=== PATIENT | female | born 1990 | race Caucasian/White ===

== ENCOUNTER 2017-02-11 19:53 | Emergency (ER) | payer SELFPAY ==
[2017-02-11 20:53] VITALS: RESP 16
--- NOTE | 2017-02-11 21:53 | ED PDOC ---
HPI: Headache Time Seen by Provider: 02/11/17 20:24 Chief Complaint (Nursing): Headache History Per: Patient History/Exam Limitations: no limitations Onset/Duration Of Symptoms: Hrs Additional History Per: Patient Additional Complaint(s): 3-4 month , states she has has SHERMAN, neck pain x 1 day. nonthunderclap, no photophobia, not worst SHERMAN of life. States she has had on and off R sided abd pain with . denies vag bleed or vag discharge. no urinary symptoms. no fevers. pt. eating a full meal in bed and requesting an "xray" Past Medical History Reviewed: Historical Data, Nursing Documentation, Vital Signs Vital Signs: Last Vital Signs Temp 98.8 F 02/11/17 20:55 Pulse 77 02/11/17 20:52 Resp 16 02/11/17 20:52 BP 101/70 02/11/17 20:52 Pulse Ox 100 02/11/17 20:52 - Medical History PMH: Migraine - Surgical History Surgical History: Appendectomy, - Family History Family History: States: Unknown Family Hx - Immunization History Hx Tetanus Toxoid Vaccination: No Hx Influenza Vaccination: No Hx Pneumococcal Vaccination: No - Home Medications Home Medications: Ambulatory Orders Medication Instructions Recorded Acetaminophen [Tylenol Extra 500 mg PO Q4H PRN #10 tab 01/08/15 Strength] Acetaminophen [Tylenol] 650 mg PO Q4 #30 tab 01/30/16 Ibuprofen [Motrin] 600 mg PO Q6 #30 tab 01/30/16 Ondansetron [Zofran] 4 mg PO Q8H #12 tab 01/30/16 Acetaminophen [Arthritis Pain] 650 mg PO Q4 #30 tablet.er 02/11/17 - Allergies Allergies/Adverse Reactions: Allergies Allergy/AdvReac Type Severity Reaction Status Date / Time No Known Allergies Allergy Verified 12/12/16 11:03 Review of Systems ROS Statement: Except As Marked, All Systems Reviewed And Found Negative Physical Exam - Reviewed Nursing Documentation Reviewed: Yes Vital Signs Reviewed: Yes - Physical Exam Appears: Positive for: Well, Non-toxic, No Acute Distress Head Exam: Positive for: ATRAUMATIC, NORMAL INSPECTION, NORMOCEPHALIC Skin: Positive for: Normal Color, Warm, DRY Eye Exam: Positive for: EOMI, Normal appearance, PERRL ENT: Positive for: Normal ENT Inspection Neck: Positive for: Normal, Painless ROM Cardiovascular/Chest: Positive for: Regular Rate, Rhythm Respiratory: Positive for: CNT, Normal Breath Sounds Gastrointestinal/Abdominal: Positive for: Normal Exam, Bowel Sounds, Soft Back: Positive for: Normal Inspection Extremity: Positive for: Normal ROM Neurologic/Psych: Positive for: Alert, Oriented - ECG O2 Sat by Pulse Oximetry: 100 Pulse Ox Interpretation: Normal Medical Decision Making Medical Decision Making: abd pain in , nausea. will r/o ectopic. SHERMAN nonpathological. 2350: US negative and patient feeling better. Instructed to avoid NSAIDs during and f/u w/ PCP. Disposition - Clinical Impression Clinical Impression: Headache, Abdominal pain affecting - Patient ED Disposition Is Patient to be Admitted: No Counseled Patient/Family Regarding: Studies Performed, Diagnosis, Need For Followup - Disposition [facility] Disposition: Routine/Home Disposition Time: 23:50 Condition: STABLE Additional Instructions: Please avoid advil or any NSAIDs during . Please be aware that x-rays are potentially harmful for your baby. Prescriptions: Acetaminophen [Arthritis Pain] 650 mg PO Q4 #30 tablet.er Instructions: Abdominal Pain in (ED), General Headache (ED)
[2017-02-12 00:03] VITALS: BP 111/69; PULSE 75; TEMP 98.4; O2SAT 99
--- NOTE | 2017-02-12 12:10 | US ---
PROCEDURE: Obstetrical ultrasound examination HISTORY: 3-4 mo , R sided abd pain COMPARISON: 01/01/2017 TECHNIQUE: Transabdominal FINDINGS: Single live intrauterine gestation noted. 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 2nd cornu is not evident on this examination. heart rate 163 beats per minute. Breech presentation. Amniotic fluid volume grossly normal. biometry yields average ultrasound age of 14 weeks 0 days. The FISH by ultrasound examination is 08/12/2017. Placenta could not be adequately delineated on the basis of this examination. Relationship to internal cervical os not demonstrated. Cervix closed and measures 4.2 cm in length. No uterine mass identified. Ovaries not visualized. No adnexal masses seen. No fluid seen in cul-de-sac. IMPRESSION: Single live intrauterine gestation of approximately 14 weeks 0 days gestational age by ultrasound examination. heart rate 163 beats per minute. Placenta not well delineated on the basis of this examination. Placenta previa not excluded on the basis of this examination. However, followup examination is advised during 2nd trimester of . Cervix closed. Breech presentation. Preliminary interpretation of this examination was reported by [facility] at 12:20 a.m. on 02/12/2017. There is concurrence of this report with the preliminary interpretation.
== END 2017-02-11 23:54 | disposition home or self-care (01) ==
LOC: H.ER 19:53
DX: O26.892 Other specified pregnancy related conditions, second trimester (principal); M54.2 Cervicalgia

== ENCOUNTER 2017-06-09 18:07 | Emergency (ER) | payer MEDICAID ==
--- NOTE | 2017-06-09 19:32 | OBHP ---
Datetime: 06/09/2017 19:15 IP Adm Impression: , intrauterine IP Chief Complaint Other: dizziness IP Admit Plan: Discharge home Admit Comment, IP Provider: The patient was seen with the resident and I agree with the notes. Patient was instructed to follo w up with her PMD. labor precautions provided Pelvic Type - PN: Not Done Extremities - PN: Normal Abdomen - PN: Normal Back - PN: Normal Lungs - PN: Normal Heart - PN: Normal Thyroid - PN: Normal Neurologic - PN: Normal HEENT - PN: Normal General - PN: Normal FHR - Baseline A Provider: 140 Gestation - Est Wks by US: 28.0 EGA AdmitDate IP: 29.4 Vital Signs Provider: Reviewed IP Chief Complaint: Other NICHD Variability Prov Fetus A: Moderate 6-25bpm NICHD Accel Fetus A IP Provider: 10X10 FHR Category Provider Fetus A: Category I Genitourinary Exam: Normal
== END 2017-06-09 20:45 | disposition home or self-care (01) ==
LOC: H.EROB2 18:07
DX: O26.93 Pregnancy related conditions, unspecified, third trimester (principal); R42 Dizziness and giddiness; Z3A.29 29 weeks gestation of pregnancy

== ENCOUNTER 2017-08-16 05:43 | Emergency (ER) | payer MEDICAID ==
[2017-08-16 07:10] VITALS: BMI 24.9
[2017-08-16] MEDS ORDERED: Lactated Ringer's 1,000 ML IV SCH (09:15)
--- NOTE | 2017-08-16 11:36 | OBHP ---
Datetime: 08/16/2017 07:31 IP Adm Impression: Term, intrauterine IP Admit Plan: Observation/Evaluation Admit Comment, IP Provider: 27 yo female at 39 weeks 2 days gestation confirmed by U/S at 18 we eks presents complaining of contractions occuring every 15-20minutes and vaginal bleeding since 3am. Last sexual acivity was 1 week ago. Denies trauma, vaginal fluid, headache, dizziness. Reports last f etal movement at 2am. Patient states that she was told she was breech a week prior and had concerns. PNC at [facility] in [place]. GBS negative. RH negative, Recieved Rhogam at 28wee ks (05/19). Latest U/S on 33weeks (07/06) showed an anterior placenta with no previa seen, Bicornuate Uterus. complicated by anemia, found to be + Beta Thalassemia Trait. Remainder of Prental labs unremarkable OBHx: 2 prior (2010, 2013) full term, patient states she had excessive bleeding during second , not requiring a blood transfusion, reported that labor progressed rapidly within 4-5 hour s. Hotel Clerk: Pap Smear negative in 04/01/17, No Hx STD's or fibroids PMHx: No chronic diseases Surgical hx: Appendectomy in 2012 Social Hx: lives with , 2 children. Denies smoking, alcohol, drug use Rx meds: PNV and Iron Allergies: NKDA Triage Vitals: BP 126/93, afebrile Assessment: IUP at 39 weeks gestation 2 days complaining of contractions and vaginal bleed, not in active labo r. BP is stable in 120's systolic. One episode of BP 132/84 while patient was complaining of pain. F HT reassuring. No acute bleeding visualized on pelvic exam. Plan: Monitor BP's q4 and continue to observe for progression of labor. Monitor for signs of activ e bleeding. Fluids administered. Audie Mcmanus PGY1 OB addendum: Patient seen and examined by me and we agree with the assessment following modification- Impression: No evidence of active labor No active bleeding. Cervical bleeding likely to cervical dilation to 1 cm. Reactive NST Plan: Labor precautions Patient advised to return to the hospital bleeding worse. Labor precautions Follow-up with OB appointment as scheduled Pelvic Type - PN: Not Done Extremities - PN: Normal Abdomen - PN: Normal Back - PN: Normal Breast - PN: Normal Lungs - PN: Normal Heart - PN: Normal Thyroid - PN: Normal Neurologic - PN: Normal HEENT - PN: Normal General - PN: Normal Presentation-Admit: Vertex FHR - Baseline A Provider: 140 Comments, ACOG Physical Exam: Speculum Exam: +dark blood in posteriro cul de sac, clotted CVX: +dark blood thickened blood per cervical os; no active gushing/bleeding. repeat exam digital: no change 1cm/0%/-4 EGA AdmitDate IP: 39.2 Vital Signs Provider: Reviewed IP Chief Complaint: Uterine contractions; Vaginal bleeding NICHD Variability Prov Fetus A: Moderate 6-25bpm NICHD Accel Fetus A IP Provider: 15X15 FHR Category Provider Fetus A: Category I NICHD Decel Fetus A IP Provider: None Dilatation, Provider: 1cm Effacement, Provider: 0 Station, Provider: -3 Genitourinary Exam: Normal DTRs - PN: Normal Datetime: 06/09/2017 19:15 IP Hx Assessment: The History has been Updated
[2017-08-16 15:36] VITALS: BP 108/75; PULSE 84; RESP 17; TEMP 98.5
== END 2017-08-16 11:18 | disposition home or self-care (01) ==
LOC: H.EROB2 05:43
DX: O47.1 False labor at or after 37 completed weeks of gestation (principal); Z3A.39 39 weeks gestation of pregnancy; O09.93 Supervision of high risk pregnancy, unspecified, third trimester
CPT/HCPCS: 99283; J7120

== ENCOUNTER 2017-08-17 04:03 | Inpatient (IN) | payer MEDICAID ==
[2017-08-17 04:21] VITALS: BMI 24.3
[2017-08-17] MEDS: Lactated Ringer's 500 ML IV SCH ×6 (05:25→09:00)
[2017-08-17 05:31] VITALS: O2SAT 100
[2017-08-17 05:39] LABS: BASO # 0.1 K/uL (0.0-0.2); BASO % 0.4 % (0.0-2.0); EOS # 0.1 K/uL (0.0-0.7); HEMATOCRIT 35.2 % (34.0-47.0); LYMPH # 2.3 K/uL (1.0-4.3); LYMPH % 16.5 % (20.0-40.0); MEAN CELL VOLUME 72.7 fl (81.0-99.0); MEAN CORPUSCULAR HGB CONC 31.6 g/dL (33.0-37.0); MEAN PLATELET VOLUME 8.8 fl (7.2-11.7); MONO # 0.7 K/uL (0.0-0.8); MONO % 5.3 % (0.0-10.0); NEUT # 10.6 K/uL (1.8-7.0); NEUT % 76.8 % (50.0-75.0); NRBC % 0.1 % (0.0-0.0); RED CELL DISTRIBUTION WIDTH 15.6 % (11.5-14.5); WHITE BLOOD COUNT 13.8 K/uL (4.8-10.8)
[2017-08-17] MEDS ORDERED: Lidocaine 1% Inj (20ml) ONE (06:28)
[2017-08-17] MEDS ORDERED: Fentanyl/Bupivacaine HCl 250 ML EPI ONE (06:41)
[2017-08-17] MEDS ORDERED: Oxytocin 30 units/LR 500ML 30 U/500 ML BAG IV ONE (07:01)
[2017-08-17] MEDS ORDERED: Oxycodone/Acetaminophen 5/325 mg Tab PO PRN (13:29)
[2017-08-17] MEDS: Benzocaine/Menthol SPRAY TOP PRN (17:22)
[2017-08-18 07:22] LABS: HEMATOCRIT 26.3 % (34.0-47.0); MEAN CELL VOLUME 73.1 fl (81.0-99.0); MEAN CORPUSCULAR HGB CONC 31.4 g/dL (33.0-37.0); RED CELL DISTRIBUTION WIDTH 15.4 % (11.5-14.5); WHITE BLOOD COUNT 15.4 K/uL (4.8-10.8)
[2017-08-19] MEDS: Benzocaine/Menthol SPRAY TOP PRN (12:35)
[2017-08-20 16:21] VITALS: BP 103/58; PULSE 88; RESP 18; TEMP 98.3
== END 2017-08-19 13:55 | disposition home or self-care (01) | DRG 373 ==
LOC: H.EROB2 04:03 → H.L&D 05:09 → H.OB/GYN 15:23
PROVIDERS: ADMIT Obstetrics & Gynecology; ATTEND Obstetrics & Gynecology
PROC: 10E0XZZ Delivery of Products of Conception, External Approach (ICD-10-PCS; principal; 2017-08-17)
PROC: 0HQ9XZZ Repair Perineum Skin, External Approach (ICD-10-PCS; 2017-08-17)
PROC: 4A1HXCZ Monitoring of Products of Conception, Cardiac Rate, External Approach (ICD-10-PCS; 2017-08-17)
DX: O76 Abnormality in fetal heart rate and rhythm complicating labor and delivery (principal); O69.81X0 Labor and delivery complicated by cord around neck, without compression, not applicable or unspecified; Z37.0 Single live birth; Z3A.39 39 weeks gestation of pregnancy; O70.0 First degree perineal laceration during delivery

== ENCOUNTER 2017-10-08 21:02 | Emergency (ER) | payer MEDICAID ==
[2017-10-08 21:02] VITALS: BMI 24.3
[2017-10-08 21:20] VITALS: BP 109/78; PULSE 80; RESP 18; TEMP 97.4; O2SAT 100
--- NOTE | 2017-10-08 21:27 | ED PDOC ---
HPI: General Adult Time Seen by Provider: 10/08/17 21:19 Chief Complaint (Nursing): Breast Problem Chief Complaint (Provider): Breast problem History Per: Patient History/Exam Limitations: no limitations Onset/Duration Of Symptoms: Days (x2) Current Symptoms Are (Timing): Still Present Additional Complaint(s): Jorge Venegas is a 27 year old female, with a past medical history of migraines , who presents to the emergency department complaining of bilateral breast pain onset for 2 days. Patient reports her 6 weeks old baby. Patient states that this is her 3rd baby. She denies any fever or chills. No further medical complaints. PMD: None provided. Past Medical History Reviewed: Historical Data, Nursing Documentation, Vital Signs Vital Signs: Last Vital Signs Temp 97.4 F L 10/08/17 21:17 Pulse 80 10/08/17 21:17 Resp 18 10/08/17 21:17 BP 109/78 10/08/17 21:17 Pulse Ox 100 10/08/17 21:33 - Medical History PMH: Migraine - Surgical History Surgical History: Appendectomy, - Family History Family History: States: Unknown Family Hx - Immunization History Hx Tetanus Toxoid Vaccination: No Hx Influenza Vaccination: No Hx Pneumococcal Vaccination: No - Home Medications Home Medications: Ambulatory Orders Medication Instructions Recorded Ferrous Sulfate [Feosol] 325 mg PO DAILY 08/17/17 Multivit/Folic Acid/I 1 tab PO DAILY 08/17/17 [ Plus] Ibuprofen [Motrin] 600 mg PO Q6 #20 tab 10/08/17 - Allergies Allergies/Adverse Reactions: Allergies Allergy/AdvReac Type Severity Reaction Status Date / Time No Known Allergies Allergy Verified 08/17/17 05:22 Review of Systems ROS Statement: Except As Marked, All Systems Reviewed And Found Negative Constitutional: Negative for: Fever, Chills Musculoskeletal: Positive for: Other (bilateral breast pain) Physical Exam - Reviewed Nursing Documentation Reviewed: Yes Vital Signs Reviewed: Yes - Physical Exam Appears: Positive for: Well, Non-toxic, No Acute Distress Head Exam: Positive for: ATRAUMATIC, NORMAL INSPECTION, NORMOCEPHALIC Skin: Positive for: Normal Color, Warm, Dry Eye Exam: Positive for: EOMI, Normal appearance, PERRL Neck: Positive for: Normal, Painless ROM, Supple Respiratory: Negative for: Respiratory Distress Extremity: Positive for: Normal ROM Neurologic/Psych: Positive for: Alert, Oriented Comments: Lactating bilaterally. No erythema, no edema to the nipple. Positive cracked/ dry skin - ECG O2 Sat by Pulse Oximetry: 100 (RA) Pulse Ox Interpretation: Normal Medical Decision Making Medical Decision Making: Initial Impression: Breast soreness from breast feeding Initial Plan: Supportive care measures discussed, as well as pumping options. Pt givne information for consult to follow up with ~ Scribe Attestation: Documented by Sukh Lewis, acting as a scribe for Ce Thomason PA-C. Provider Scribe Attestation: All medical record entries made by the Scribe were at my direction and personally dictated by me. I have reviewed the chart and agree that the record accurately reflects my personal performance of the history, physical exam, medical decision making, and the department course for this patient. I have also personally directed, reviewed, and agree with the discharge instructions and disposition. Disposition - Clinical Impression Clinical Impression: Pain aggravated by breast feeding - Patient ED Disposition Is Patient to be Admitted: No - Disposition Disposition: Routine/Home Disposition Time: 21:35 Condition: STABLE Additional Instructions: environmental consultant: [phone] Prescriptions: Ibuprofen [Motrin] 600 mg PO Q6 #20 tab Instructions: and Nipple Soreness (ED) Forms: [employer] (Portuguese)
== END 2017-10-08 21:44 | disposition home or self-care (01) ==
LOC: H.ER 21:02
DX: N64.4 Mastodynia (principal)

== ENCOUNTER 2018-02-14 21:21 | Emergency (ER) | payer SELFPAY ==
[2018-02-14 21:21] VITALS: BMI 24.3
[2018-02-14 21:43] VITALS: BP 109/76; PULSE 82; RESP 18; TEMP 98.3; O2SAT 98
--- NOTE | 2018-02-14 22:30 | ED PDOC ---
HPI: Abdomen Time Seen by Provider: 02/14/18 21:56 Chief Complaint (Nursing): Abdominal Pain Chief Complaint (Provider): abdominal pain History Per: Patient History/Exam Limitations: no limitations Onset/Duration Of Symptoms: Days (1) Current Symptoms Are (Timing): Still Present Location Of Pain/Discomfort: RLQ, LLQ, Suprapubic Last Bowel Movement: Today Additional Complaint(s): 28 y/o female presents with lower abdominal pain, worse left side, x 1 day. Patient states when pain gets intense it hurts her rectum when she sits. Denies fever, nausea/vomiting, chest pain, shortness of breath, changes in bowel movements, urinary symptoms, vaginal bleeding/discharge. No medication taken for relief thus far. Abnormal Vaginal Bleeding: No Past Medical History Reviewed: Historical Data, Nursing Documentation, Vital Signs Vital Signs: Last Vital Signs Temp 98.3 F 02/14/18 21:39 Pulse 82 02/14/18 21:39 Resp 18 02/14/18 21:39 BP 109/76 02/14/18 21:39 Pulse Ox 98 02/14/18 23:55 - Medical History PMH: Migraine Denies: Depression, Diabetes, HTN - Surgical History Surgical History: Appendectomy, - Family History Family History: States: Unknown Family Hx - Living Arrangements Living Arrangements: With Family - Immunization History Hx Tetanus Toxoid Vaccination: No Hx Influenza Vaccination: No Hx Pneumococcal Vaccination: No - Home Medications Home Medications: Ambulatory Orders Medication Instructions Recorded Ferrous Sulfate [Feosol] 325 mg PO DAILY 08/17/17 Multivit/Folic Acid/I 1 tab PO DAILY 08/17/17 [ Plus] Ibuprofen [Motrin] 600 mg PO Q6 #20 tab 10/08/17 Polyethylene Glycol 3350 [Miralax] 17 gm PO DAILY PRN #5 powd.pack 02/15/18 - Allergies Allergies/Adverse Reactions: Allergies Allergy/AdvReac Type Severity Reaction Status Date / Time No Known Allergies Allergy Verified 08/17/17 05:22 Review of Systems ROS Statement: Except As Marked, All Systems Reviewed And Found Negative Gastrointestinal: Positive for: Abdominal Pain Genitourinary Female: Positive for: Pelvic Pain Physical Exam - Reviewed Nursing Documentation Reviewed: Yes Vital Signs Reviewed: Yes - Physical Exam Appears: Positive for: Well, Non-toxic, No Acute Distress Head Exam: Positive for: ATRAUMATIC, NORMAL INSPECTION, NORMOCEPHALIC Skin: Positive for: Normal Color Eye Exam: Positive for: Normal appearance ENT: Positive for: Normal ENT Inspection Cardiovascular/Chest: Positive for: Regular Rate, Rhythm Respiratory: Positive for: Normal Breath Sounds Gastrointestinal/Abdominal: Positive for: Bowel Sounds, Soft, Tenderness (rlq, suprapubic, llq) Back: Positive for: Normal Inspection Rectal: Positive for: Deferred Extremity: Positive for: Normal ROM Neurologic/Psych: Positive for: Alert, Oriented - Laboratory Results Result Diagrams: 02/14/18 22:50 02/15/18 00:54 - ECG O2 Sat by Pulse Oximetry: 98 - Progress ED Course And Treament: labs, urine, u/s EXAM: US Pelvis Complete, Transabdominal CLINICAL HISTORY: 28 years old, female; Pain; Abdominal pain and pelvic pain; Lower abdomen TECHNIQUE: Real-time transabdominal pelvic ultrasound (complete) with image documentation. COMPARISON: No relevant prior studies available. FINDINGS: Uterus/cervix: Bicornate uterus Normal endometrial stripe thickness 12.7 mm, and 10 mm. There is an IUD in place in good position. In the RIGHT side endometrial cavity. No myometrial mass. 9.5 cm x 7.7 cm x 3.8 cm Right ovary: Unremarkable. No mass. Normal blood flow. 3.3 cm x 1.9 cm x 2 cm Left ovary: Unremarkable. No mass. Normal blood flow. 2.9 cm x 2.3 cm x 1.9 cm Free fluid: No free fluid. IMPRESSION: 1. Bicornate uterus. 2. IUD in place on the RIGHT side. 3. Negative examination of the ovaries EXAM: CT Abdomen and Pelvis With Intravenous Contrast CLINICAL HISTORY: 28 years old, female; Pain; Abdominal pain; Other: Abd pain TECHNIQUE: Axial computed tomography images of the abdomen and pelvis with intravenous contrast. All CT scans at this facility use one or more dose reduction techniques, viz.: automated exposure control; ma/kV adjustment per patient size (including targeted exams where dose is matched to indication; i.e. head); or iterative reconstruction technique. Coronal and sagittal reformatted images were created and reviewed. CONTRAST: 95 mL of omnipaque 300 administered intravenously. COMPARISON: US - PELVIS ULTRASOUND 2018-02-14 22:35 FINDINGS: Lung bases: Unremarkable. No mass. No consolidation. ABDOMEN: Liver: Hepatomegaly and diffuse fatty infiltrationNo mass. Gallbladder and bile ducts: Unremarkable. No calcified stones. No ductal dilation. Pancreas: Unremarkable. No mass. No ductal dilation. Spleen: Unremarkable. No splenomegaly. Adrenals: Unremarkable. No mass. Kidneys and ureters: Unremarkable. No solid mass. No hydronephrosis. Stomach and bowel: Moderate stool in the colon No obstruction. No mucosal thickening. Appendix: Question prior appendectomy PELVIS: Bladder: Unremarkable. No mass. Reproductive: Intrauterine device redemonstrated within the right endometrial cavity in this patient with bicornuate uterus ABDOMEN and PELVIS: Intraperitoneal space: Unremarkable. No free air. No significant fluid collection. Bones/joints: No acute fracture. No dislocation. Soft tissues: Unremarkable. Vasculature: Unremarkable. No abdominal aortic aneurysm. Lymph nodes: Unremarkable. No enlarged lymph nodes. IMPRESSION: Moderate stool in the colon. Correlate for constipation Intrauterine device within the right endometrial canal in this patient with bicornuate uterus Patient educated on findings, discharged with rx Miralax. Advised follow up PMD 2-3 days. Return precautions given. Disposition - Clinical Impression Clinical Impression: Abdominal pain, Constipation - Patient ED Disposition Is Patient to be Admitted: No Counseled Patient/Family Regarding: Studies Performed, Diagnosis, Need For Followup, Rx Given - Disposition Referrals: [facility] [Outside] Disposition: Routine/Home Disposition Time: 04:01 Condition: IMPROVED Prescriptions: Polyethylene Glycol 3350 [Miralax] 17 gm PO DAILY PRN #5 powd.pack PRN Reason: Constipation Instructions: Constipation in Adults, Acute Abdomen (Belly Pain)
[2018-02-14 22:59] LABS: BASO % 0.6 % (0.0-2.0); EOS # 0.4 K/uL (0.0-0.7); EOS % 5.4 % (0.0-4.0); HEMOGLOBIN 11.6 g/dL (12.0-16.0); LYMPH # 1.9 K/uL (1.0-4.3); LYMPH % 25.9 % (20.0-40.0); MEAN CELL VOLUME 67.9 fl (81.0-99.0); MEAN CORPUSCULAR HEMOGLOBIN 21.4 pg (27.0-31.0); MEAN CORPUSCULAR HGB CONC 31.5 g/dL (33.0-37.0); MEAN PLATELET VOLUME 9.3 fl (7.2-11.7); MONO # 0.6 K/uL (0.0-0.8); MONO % 7.4 % (0.0-10.0); NEUT # 4.5 K/uL (1.8-7.0); NEUT % 60.7 % (50.0-75.0); RBC 5.41 Mil/uL (3.80-5.20); RED CELL DISTRIBUTION WIDTH 15.8 % (11.5-14.5); WHITE BLOOD COUNT 7.5 K/uL (4.8-10.8)
[2018-02-14] MEDS ORDERED: Iohexol 240 (50 ml) PO ONE (23:55)
[2018-02-15] MEDS ORDERED: Morphine 4 MG/ML VIAL IV ONE (00:45)
[2018-02-15 01:09] LABS: ALB/GLOB RATIO 1.1 (1.0-2.1); ALBUMIN 4.4 g/dL (3.5-5.0); ALT/SGPT 49 U/L (9-52); AST/SGOT 25 U/L (14-36); BLOOD UREA NITROGEN 9 mg/dl (7-17); CALCIUM 9.5 mg/dL (8.4-10.2); GFR AFRICAN-AMERICAN > 60; GFR NON-AFRICAN AMERICAN > 60; LIPASE 105 U/L (23-300)
[2018-02-15] MEDS ORDERED: Iohexol 300 100 ML IJ ONE (02:33)
--- NOTE | 2018-02-15 10:07 | CT ---
PROCEDURE: CT Abdomen and Pelvis with contrast HISTORY: Abdominal pain COMPARISON: None. TECHNIQUE: CT scan of the abdomen and pelvis was performed after administration of intravenous contrast. Oral contrast was administered. Coronal and sagittal reformatted images were obtained. Radiation dose: Total exam DLP = 371.38 mGy-cm. This CT exam was performed using one or more of the following dose reduction techniques: Automated exposure control, adjustment of the mA and/or kV according to patient size, and/or use of iterative reconstruction technique. FINDINGS: LOWER THORAX: The lung bases are clear. LIVER: Normal in size and there is diffuse fatty infiltration. No gross lesion or ductal dilatation. GALLBLADDER AND BILE DUCTS: No calcified gallstones. PANCREAS: Normal in size and appearance. No gross lesion or ductal dilatation. SPLEEN: Normal in size and appearance. ADRENALS: No discrete nodule. KIDNEYS AND URETERS: Normal in size with homogeneous enhancement. No hydronephrosis. No solid mass. VASCULATURE: No aortic aneurysm. BOWEL: The small bowel loops are normal in caliber. There is large amount of stool in the colon. No bowel dilatation or obstruction APPENDIX: Normal appendix. PERITONEUM: No free fluid. No free air. LYMPH NODES: No enlarged lymph nodes. BLADDER: Partially decompressed. REPRODUCTIVE: There is a bicornuate uterus with IUD in customary position in the right endometrial cavity. BONES: No acute fracture. Within normal limits for the patient's age. OTHER FINDINGS: None. IMPRESSION: No acute abdominal or pelvic abnormality. Constipation. No evidence of bowel obstruction. Bicornuate uterus with IUD in customary position in the right endometrial cavity. A preliminary report was provided by [facility].
--- NOTE | 2018-02-15 10:56 | US ---
HISTORY: Pelvic pain. LMP 01/25/2018 COMPARISON: None available. TECHNIQUE: FINDINGS: UTERUS: Measures 3.9 x 7.8 x 9.6 cm. Bicornuate uterus. No fibroid or other mass lesion seen. ENDOMETRIUM: Measures 12.7 mm in diameter. IUD identified within the right endometrial echo complex CERVIX: No cervical abnormality identified. RIGHT OVARY: Measures 1.9 x 2 x 3.3 cm. No solid mass. Normal flow. LEFT OVARY: Measures 2 x 2.3 x 2.9 cm. Normal flow. FREE FLUID: No significant free fluid noted. OTHER FINDINGS: None. IMPRESSION: Bicornuate uterus. Intrauterine contraceptive device (IUD) identified in the right side. Concordant results (preliminary interpretation) provided by [facility]. Procedure Completed: 22:57 Preliminary ([facility]) Report: Dictated and Authenticated: 23:33 Final Interpretation: 10:54
== END 2018-02-15 04:22 | disposition home or self-care (01) ==
LOC: H.ER 21:21
DX: R10.2 Pelvic and perineal pain (principal); K59.00 Constipation, unspecified; Z97.5 Presence of (intrauterine) contraceptive device
CPT/HCPCS: 74177; 76856; 80053; 81025; 83690; 85025; 99283; J1885; J2270; Q9966; Q9967

== ENCOUNTER 2018-05-06 15:46 | Emergency (ER) | payer OTHER ==
[2018-05-06 15:47] VITALS: BMI 24.3
[2018-05-06 15:53] VITALS: BP 122/84; RESP 19; TEMP 98.5; O2SAT 98
--- NOTE | 2018-05-06 16:44 | ED PDOC ---
Upper Extremity Pain/Injury Time Seen by Provider: 05/06/18 16:32 Chief Complaint (Nursing): Finger,Hand,&Wrist Chief Complaint (Provider): Finger Injury History Per: Patient History/Exam Limitations: no limitations Onset/Duration Of Symptoms: Days (yesterday morning) Current Symptoms Are (Timing): Still Present Additional Complaint(s): 28 year old, right-hand dominant female presents to ED with complaints of a right second digit finger laceration sustained yesterday morning. Patient states she was preparing food for her child at the time and accidentally cut finger on blender/braze applicator blade. Patient is up to date with tetanus. No medical attention sought yesterday at time of injury. PCP: No PCP Past Medical History Reviewed: Historical Data, Nursing Documentation, Vital Signs Vital Signs: Last Vital Signs Temp 98.5 F 05/06/18 15:52 Pulse 101 H 05/06/18 15:52 Resp 19 05/06/18 15:52 BP 122/84 05/06/18 15:52 Pulse Ox 98 05/06/18 15:52 - Medical History PMH: No Chronic Diseases - Surgical History Surgical History: Appendectomy, - Family History Family History: States: No Known Family Hx - Living Arrangements Living Arrangements: With Family - Social History Current smoker - smoking cessation education provided: No Ex-Smoker (has not smoked in the last 12 months): No Alcohol: None Drugs: Denies - Immunization History Hx Tetanus Toxoid Vaccination: Yes - Home Medications Home Medications: Ambulatory Orders Medication Instructions Recorded Ferrous Sulfate [Feosol] 325 mg PO DAILY 08/17/17 Multivit/Folic Acid/I 1 tab PO DAILY 08/17/17 [ Plus] Ibuprofen [Motrin] 600 mg PO Q6 #20 tab 10/08/17 Polyethylene Glycol 3350 [Miralax] 17 gm PO DAILY PRN #5 powd.pack 02/15/18 Cephalexin [Keflex] 500 mg PO TID #21 capsule 05/06/18 Ibuprofen [Motrin] 600 mg PO Q6 PRN #15 tab 05/06/18 - Allergies Allergies/Adverse Reactions: Allergies Allergy/AdvReac Type Severity Reaction Status Date / Time No Known Allergies Allergy Verified 08/17/17 05:22 Review of Systems ROS Statement: Except As Marked, All Systems Reviewed And Found Negative Musculoskeletal: Positive for: Other (right index finger laceration sustained yesterday) Physical Exam - Reviewed Nursing Documentation Reviewed: Yes Vital Signs Reviewed: Yes - Physical Exam Appears: Positive for: Well, Non-toxic, No Acute Distress Skin: Positive for: Normal Color. Negative for: Rash Eye Exam: Positive for: Normal appearance Extremity: Positive for: Normal ROM, Other (1 cm laceration to dorsal aspect of right index finger just proximal to eponychial fold, with no active bleeding, N/ V intact) Neurologic/Psych: Positive for: Alert, Oriented. Negative for: Motor/Sensory Deficits - Laboratory Results Urine POC: Negative (test declined, patient is certain she is not ) - ECG O2 Sat by Pulse Oximetry: 98 (RA) Pulse Ox Interpretation: Normal Medical Decision Making Medical Decision Makin Initial impression: 28 year old with right index finger laceration Initial plan: * Acetaminophen 975mg PO 1700 Wound is over 24 hrs old, no sutures indicated. Wound was cleansed with saline and betadine then bacitracin and bandage applied. Patient will be discharged home with prescriptions for Motrin and Keflex. Wound care instructions given. Provider instructed patient to follow up at the clinic as patient does not have a primary care physician. Scribe Attestation: Documented by Corrine Hammond, acting as a scribe for Ce Ramsey PA-C Provider Scribe Attestation: All medical record entries made by the Scribe were at my direction and personally dictated by me. I have reviewed the chart and agree that the record accurately reflects my personal performance of the history, physical exam, medical decision making, and the department course for this patient. I have also personally directed, reviewed, and agree with the discharge instructions and disposition. Disposition - Clinical Impression Clinical Impression: Finger laceration - Patient ED Disposition Is Patient to be Admitted: No Counseled Patient/Family Regarding: Diagnosis, Need For Followup, Rx Given - Disposition Referrals: [facility] [Outside] Disposition: Routine/Home Disposition Time: 17:11 Condition: STABLE Additional Instructions: Take prescription meds as directed. Wash wound daily with soap and water and apply bacitracin once per day. Follow-up with clinic in 2-3 days. Prescriptions: Cephalexin [Keflex] 500 mg PO TID #21 capsule Ibuprofen [Motrin] 600 mg PO Q6 PRN #15 tab PRN Reason: Pain, Moderate (4-7) Instructions: Common Finger Injuries, Wound Care (DC) Forms: [employer] (Cuban)
[2018-05-06 17:26] VITALS: PULSE 90
== END 2018-05-06 17:25 | disposition home or self-care (01) ==
LOC: H.ER 15:46
DX: S61.210A Laceration without foreign body of right index finger without damage to nail, initial encounter (principal); W26.8XXA Contact with other sharp object(s), not elsewhere classified, initial encounter; Y92.000 Kitchen of unspecified non-institutional (private) residence as the place of occurrence of the external cause

== ENCOUNTER 2018-06-16 22:41 | Emergency (ER) | payer OTHER ==
[2018-06-16 22:41] VITALS: BMI 24.3
--- NOTE | 2018-06-16 23:02 | ED PDOC ---
HPI: Abdomen Time Seen by Provider: 06/16/18 23:01 Chief Complaint (Nursing): Abdominal Pain Chief Complaint (Provider): abdominal pain History Per: Patient Additional Complaint(s): 28-year-old female with no past medical history presents with right lower quadrant pain that started 8 days ago. Patient states pain became worse today prompting ED visit. She took Tylenol the other day which did help the pain. Patient denies any dysuria, hematuria, vaginal bleeding or discharge. She has an IUD in place for the past 8 months. No associated fever or chills, no nausea , vomiting, diarrhea or constipation. Patient denies any concern for STDs. PMD: None Past Medical History Reviewed: Historical Data, Nursing Documentation, Vital Signs Vital Signs: Last Vital Signs Temp 99.0 F 06/16/18 22:43 Pulse 107 H 06/16/18 22:43 Resp 16 06/16/18 22:43 BP 105/69 06/16/18 22:43 Pulse Ox 97 06/17/18 01:15 - Medical History PMH: Migraine - Surgical History Surgical History: Appendectomy, - Family History Family History: States: No Known Family Hx - Living Arrangements Living Arrangements: With Family - Social History Current smoker - smoking cessation education provided: No Alcohol: None Drugs: Denies - Home Medications Home Medications: Ambulatory Orders Medication Instructions Recorded Ferrous Sulfate [Feosol] 325 mg PO DAILY 08/17/17 Multivit/Folic Acid/I 1 tab PO DAILY 08/17/17 [ Plus] Ibuprofen [Motrin] 600 mg PO Q6 #20 tab 10/08/17 Polyethylene Glycol 3350 [Miralax] 17 gm PO DAILY PRN #5 powd.pack 02/15/18 Cephalexin [Keflex] 500 mg PO TID #21 capsule 05/06/18 Ibuprofen [Motrin] 600 mg PO Q6 PRN #15 tab 05/06/18 Ibuprofen [Motrin] 600 mg PO Q6 PRN #15 tab 06/17/18 - Allergies Allergies/Adverse Reactions: Allergies Allergy/AdvReac Type Severity Reaction Status Date / Time No Known Allergies Allergy Verified 06/16/18 22:43 Review of Systems ROS Statement: Except As Marked, All Systems Reviewed And Found Negative Constitutional: Negative for: Fever, Chills Cardiovascular: Negative for: Chest Pain Respiratory: Negative for: Cough Gastrointestinal: Positive for: Abdominal Pain. Negative for: Nausea, Vomiting , Diarrhea, Constipation Genitourinary Female: Positive for: Pelvic Pain. Negative for: Dysuria, Incontinence, Hematuria, Vaginal Discharge, Vaginal Bleeding Physical Exam - Reviewed Nursing Documentation Reviewed: Yes Vital Signs Reviewed: Yes - Physical Exam Appears: Positive for: Well, Non-toxic, No Acute Distress Skin: Positive for: Normal Color. Negative for: Rash Eye Exam: Positive for: Normal appearance Cardiovascular/Chest: Positive for: Regular Rate, Rhythm Respiratory: Positive for: Normal Breath Sounds. Negative for: Wheezing, Respiratory Distress Gastrointestinal/Abdominal: Positive for: Soft, Tenderness (Mild tenderness right lower quadrant, right adnexal region, no rebound, no guarding) Back: Negative for: L CVA Tenderness, R CVA Tenderness Extremity: Positive for: Normal ROM Neurologic/Psych: Positive for: Alert, Oriented - Laboratory Results Result Diagrams: 06/17/18 00:06 06/17/18 00:06 Urine POC: Negative Urine dip results: Positive for: Leukocyte Esterase (trace). Negative for: Blood, Nitrate, Ketones, Glucose, Bilirubin, Protein - ECG O2 Sat by Pulse Oximetry: 97 Pulse Ox Interpretation: Normal - Other Rad TV US X-Ray: Read By Radiologist X-Ray Interpretation: see below Medical Decision Making Medical Decision Makin-year-old female with lower abdominal pain. 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 There is IUD on the right side of the bicornuate uterus. The endometrial stripe in the right horn of the uterus measures 18 mm and left horn of the uterus measures 18 mm. No myometrial mass. Right ovary: There is complex right ovarian cyst measuring 2.6 x 2.3 x 2.1 cm. The right ovary measures 3.9 x 5.6 x 2.8 cm. Duplex assessment demonstrates presence of color Doppler signal and spectral Doppler waveform in right ovary. No torsion. Left ovary: The left ovary measures 3.8 x 3.1 x 1.9 cm. Duplex assessment demonstrates presence of color Doppler signal and spectral Doppler waveform in left ovary. Left ovarian dominant follicles. No torsion. Free fluid : No free fluid. Patient aware of all diagnostic testing results, all questions answered. Patient given prescription for Motrin for pain control and was advised to follow -up with curber. Disposition - Clinical Impression Clinical Impression: Ovarian cyst - Patient ED Disposition Is Patient to be Admitted: No Counseled Patient/Family Regarding: Studies Performed, Diagnosis, Need For Followup, Rx Given - Disposition [facility] Disposition: Routine/Home Disposition Time: 02:21 Condition: STABLE Additional Instructions: Take Motrin for pain as needed as directed. Follow-up with women's clinic or your private curber. Prescriptions: Ibuprofen [Motrin] 600 mg PO Q6 PRN #15 tab PRN Reason: Pain, Moderate (4-7) Instructions: Ovarian Cysts Forms: [email or web address] (Turkish) Results - Lab Results Lab Results: 06/17/18 06/17/18 06/16/18 00:06 00:06 23:15 WBC 8.6 RBC 5.03 Hgb 10.5 L Hct 34.1 MCV 67.7 L MCH 20.8 L MCHC 30.7 L RDW 15.7 H Plt Count 207 MPV 9.7 Neut % (Auto) 62.1 Lymph % (Auto) 25.8 [place] % (Auto) 8.5 Eos % (Auto) 3.2 Baso % (Auto) 0.4 Neut # (Auto) 5.3 Lymph # (Auto) 2.2 [place] # (Auto) 0.7 Eos # (Auto) 0.3 Baso # (Auto) 0.0 Sodium 140 Potassium 3.5 L Chloride 105 Carbon Dioxide 27 Anion Gap 12 BUN 15 Creatinine 0.6 L Est GFR ( Amer) > 60 Est GFR (Non-Af Amer) > 60 Random Glucose 83 Calcium 8.9 Total Bilirubin 0.3 AST 19 ALT 26 Alkaline Phosphatase 43 Total Protein 7.1 Albumin 3.9 Globulin 3.2 Albumin/Globulin Ratio 1.2 Urine Color Yellow Urine Clarity Clear Urine pH 6.0 Ur Specific [place] 1.019 Urine Protein Negative Urine Glucose (UA) Neg Urine Ketones Negative Urine Blood Negative Urine Nitrate Negative Urine Bilirubin Negative Urine Urobilinogen 0.2-1.0 Ur Leukocyte Esterase Neg Urine RBC (Auto) 1 Urine Microscopic WBC 1 Ur Squamous Epith Cells 2
[2018-06-16 23:28] LABS: SQUAMOUS EPITHIAL 2 /hpf (0-5); URINE BILIRUBIN NEGATIVE (NEGATIVE); URINE BLOOD NEGATIVE (NEGATIVE); URINE CLARITY CLEAR (Clear); URINE COLOR YELLOW (YELLOW); URINE GLUCOSE (UA) NEG (Normal); URINE LEUKOCYTE ESTERASE NEG Leu/uL (Negative); URINE PROTEIN NEGATIVE (NEGATIVE); URINE UROBILINOGEN 0.2-1.0 mg/dL (0.2-1.0)
[2018-06-17 00:13] LABS: BASO % 0.4 % (0.0-2.0); EOS # 0.3 K/uL (0.0-0.7); EOS % 3.2 % (0.0-4.0); HEMOGLOBIN 10.5 g/dL (12.0-16.0); LYMPH # 2.2 K/uL (1.0-4.3); LYMPH % 25.8 % (20.0-40.0); MEAN CELL VOLUME 67.7 fl (81.0-99.0); MEAN CORPUSCULAR HEMOGLOBIN 20.8 pg (27.0-31.0); MEAN CORPUSCULAR HGB CONC 30.7 g/dL (33.0-37.0); MEAN PLATELET VOLUME 9.7 fl (7.2-11.7); MONO # 0.7 K/uL (0.0-0.8); MONO % 8.5 % (0.0-10.0); NEUT # 5.3 K/uL (1.8-7.0); NEUT % 62.1 % (50.0-75.0); RBC 5.03 Mil/uL (3.80-5.20); RED CELL DISTRIBUTION WIDTH 15.7 % (11.5-14.5); WHITE BLOOD COUNT 8.6 K/uL (4.8-10.8)
[2018-06-17 00:21] LABS: ALB/GLOB RATIO 1.2 (1.0-2.1); ALBUMIN 3.9 g/dL (3.5-5.0); ALT/SGPT 26 U/L (9-52); AST/SGOT 19 U/L (14-36); BLOOD UREA NITROGEN 15 mg/dl (7-17); CALCIUM 8.9 mg/dL (8.4-10.2); GFR AFRICAN-AMERICAN > 60; GFR NON-AFRICAN AMERICAN > 60
[2018-06-17 03:39] VITALS: BP 108/66; PULSE 83; RESP 15; TEMP 98.5; O2SAT 100
--- NOTE | 2018-06-17 11:46 | US ---
Date of service: 06/17/2018 HISTORY: Pelvic pain right-sided 8 days duration. LMP 05/31/2018. COMPARISON: 02/14/2018. TECHNIQUE: Transvaginal only. Real -time technique with 2D, duplex and color Doppler FINDINGS: UTERUS: Measures 7.6 x 4.3 x 9.8 cm. Bicornuate uterus. Intrauterine contraceptive device identified in the right cornua ENDOMETRIUM: Right: Measures 17.7 mm in diameter. Unremarkable. Left: Measures 18.1 mm in diameter. Unremarkable. CERVIX: No cervical abnormality identified. RIGHT OVARY: Measures 5.6 x 2.8 x 3.8 cm. Complex, presumed hemorrhagic cyst 2.1 x 2.3 x 2.6 cm. Normal flow. LEFT OVARY: Measures 3.8 x 3.1 x 1.9 cm. No solid mass. Normal flow. Multiple subcentimeter follicles. FREE FLUID: No significant free fluid noted. OTHER FINDINGS: None. IMPRESSION: Bicornuate uterus with IUD in the right endometrial echo complex. Endometrial hypertrophy noted. Approximate symmetry with respect to thickness in overall echo characteristics right compared to left. Complex right adnexal cyst. Concordant results (preliminary interpretation) provided by [facility]. Procedure Completed: 01:04. Preliminary ([facility]) Report: Dictated and Authenticated: 02:08. Final Interpretation: 11:44. June 17, 2018.
== END 2018-06-17 03:39 | disposition home or self-care (01) ==
LOC: H.ER 22:41
DX: N83.291 Other ovarian cyst, right side (principal)

== ENCOUNTER 2018-08-16 00:06 | Emergency (ER) | payer SELFPAY ==
[2018-08-16 01:04] VITALS: BMI 24.9
[2018-08-16 01:07] VITALS: BP 108/76; PULSE 87; RESP 18; TEMP 98.6; O2SAT 100
--- NOTE | 2018-08-16 04:18 | ED PDOC ---
HPI: Abdomen Time Seen by Provider: 08/16/18 01:44 Chief Complaint (Nursing): Abdominal Pain History Per: Patient History/Exam Limitations: no limitations Onset/Duration Of Symptoms: Days Outside of [place] travel?: No Location Of Pain/Discomfort: RLQ Additional Complaint(s): No PMHx presenting with RLQ pain x 3 months, states she has been taking tylenol without relief. States she was previously diagnose with ovarian cysts on that side. States no fevers, nausea, vomiting, diarrhea, vaginal bleeding, urinary symptoms. Past Medical History Reviewed: Historical Data, Nursing Documentation, Vital Signs Vital Signs: Last Vital Signs Temp 98.6 F 08/16/18 01:04 Pulse 87 08/16/18 01:04 Resp 18 08/16/18 01:04 BP 108/76 08/16/18 01:04 Pulse Ox 100 08/16/18 01:04 - Medical History PMH: Migraine Denies: Depression, Diabetes, HTN - Surgical History Surgical History: Appendectomy, - Family History Family History: States: Unknown Family Hx - Immunization History Hx Tetanus Toxoid Vaccination: Yes Hx Influenza Vaccination: No Hx Pneumococcal Vaccination: No - Home Medications Home Medications: Ambulatory Orders Medication Instructions Recorded Ferrous Sulfate [Feosol] 325 mg PO DAILY 08/17/17 Multivit/Folic Acid/I 1 tab PO DAILY 08/17/17 [ Plus] Ibuprofen [Motrin] 600 mg PO Q6 #20 tab 10/08/17 Polyethylene Glycol 3350 [Miralax] 17 gm PO DAILY PRN #5 powd.pack 02/15/18 Cephalexin [Keflex] 500 mg PO TID #21 capsule 05/06/18 Ibuprofen [Motrin] 600 mg PO Q6 PRN #15 tab 05/06/18 Ibuprofen [Motrin] 600 mg PO Q6 PRN #15 tab 06/17/18 Dicyclomine [Bentyl] 20 mg PO BID #30 tab 08/16/18 - Allergies Allergies/Adverse Reactions: Allergies Allergy/AdvReac Type Severity Reaction Status Date / Time No Known Allergies Allergy Verified 06/16/18 22:43 Review of Systems ROS Statement: Except As Marked, All Systems Reviewed And Found Negative Gastrointestinal: Positive for: Abdominal Pain Physical Exam - Reviewed Nursing Documentation Reviewed: Yes Vital Signs Reviewed: Yes - Physical Exam Appears: Positive for: Well, Non-toxic, No Acute Distress Head Exam: Positive for: ATRAUMATIC, NORMAL INSPECTION, NORMOCEPHALIC Skin: Positive for: Normal Color, Warm, DRY Eye Exam: Positive for: EOMI, Normal appearance, PERRL ENT: Positive for: Normal ENT Inspection Neck: Positive for: Normal, Painless ROM Cardiovascular/Chest: Positive for: Regular Rate, Rhythm Respiratory: Positive for: CNT, Normal Breath Sounds Gastrointestinal/Abdominal: Positive for: Normal Exam, Soft, Tenderness (RLQ tenderness) Back: Positive for: Normal Inspection Extremity: Positive for: Normal ROM Neurologic/Psych: Positive for: Alert, aeronautical drafter II-XII, Oriented. Negative for: Motor/Sensory Deficits - ECG O2 Sat by Pulse Oximetry: 100 Medical Decision Making Medical Decision Makin Patient presenting with RLQ pain x 3 months --Very unlikely acute appendicitis given chronicity of symptoms --Will check TVUS to eval for ovarian patholgoy --Patient is very well appearing 515 --Patient has no acute ovarian pathology --Advised to followup with [facility] --Well appearing --Return precautions advised- worsening abdominal pain, vomiting, fevers, chills, or any other concerning symptoms Disposition - Clinical Impression Clinical Impression: Ovarian cyst - Patient ED Disposition Is Patient to be Admitted: No - [facility] Disposition: Routine/Home Disposition Time: 05:16 Condition: STABLE Prescriptions: Dicyclomine [Bentyl] 20 mg PO BID #30 tab Instructions: Ovarian Cysts, Acute Abdomen (Belly Pain), Adult (DC) Forms: [employer] (Croatian)
--- NOTE | 2018-08-16 11:02 | US ---
Date of service: 08/16/2018 HISTORY: hx of ov cyst, r/o torsion COMPARISON: 06/17/2018. TECHNIQUE: Transvaginal only. Real -time technique with 2D, duplex and color Doppler FINDINGS: UTERUS: Measures cm. Normal in size and appearance. No fibroid or other mass lesion seen. ENDOMETRIUM: Bicornuate uterus. Right endometrial echo complex 1.6 cm. Documentation of IUD within the endometrial canal on the right. Left endometrial echo complex 1.3 cm. CERVIX: No cervical abnormality identified. RIGHT OVARY: Measures 2.2 x 4.3 x 4 cm. No solid mass. Normal flow. Multiple subcentimeter follicles. LEFT OVARY: Measures 2.1 x 3 x 3.4 cm. No solid mass. Normal flow. Multiple subcentimeter follicles. FREE FLUID: No significant free fluid noted. OTHER FINDINGS: None. IMPRESSION: No acute findings related to/accounting for the clinical presentation. No significant interval change compared to the prior examination(s). Stable position of IUD within the right endometrial echo complex. Concordant results (preliminary interpretation) provided by [facility]. Procedure Completed: 03:04. Preliminary Report: Dictated and Authenticated: 05:08. Final Interpretation: 10:58
== END 2018-08-16 05:17 | disposition home or self-care (01) ==
LOC: H.ER 00:06
DX: N83.201 Unspecified ovarian cyst, right side (principal)